=== PATIENT | male | born 1970 | race Caucasian/White ===

== ENCOUNTER 2020-02-09 08:06 | Day surgery (SDC) | payer OTHER ==
[~2020-02-09] VITALS: Ht 185.4 cm; Wt 98.0 kg
[~2020-02-09 08:06] MED LIST: D31000TA2 PO; FISH1000 PO; OSTE5TAB PO; SUMA100T2 PO; VITA500C24 PO
[2020-02-09] MEDS ORDERED: NS 1,000 ML IV ONE (09:15)
[2020-02-09] MEDS ORDERED: LIDOCAINE 2% 100MG/5ML SDV (FOR ANES.) As Ordered ONE (09:18)
[2020-02-09] MEDS ORDERED: propofoL 200 MG/20 ML VIAL As Ordered ONE (09:18)
--- NOTE | 2020-02-09 09:32 | ROOR ---
Patient Name: James Palmer Procedure Date: 02/09/2020 9:16 AM Date of : 1970 Age: 49 Room: [facility] Gender: Male Note Status: Finalized Procedure: Colonoscopy Indications: Screening for colorectal malignant neoplasm Providers: Azeem RUSH MD Referring MD: LILI SALEH MD Requesting Provider: Medicines: Monitored Anesthesia Care Complications: No immediate complications. Procedure: Pre-Anesthesia Assessment: - The heart rate, respiratory rate, oxygen saturations, blood pressure, adequacy of pulmonary ventilation, and response to care were monitored throughout the procedure. The Colonoscope was introduced through the anus and advanced to the terminal ileum, with identification of the appendiceal orifice and IC valve. The colonoscopy was performed without difficulty. Findings: The perianal and digital rectal examinations were normal. Mild sigmoid diverticulosis and small internal hemorrhoids. The exam was otherwise without abnormality on direct and retroflexion views. Impression: - Minimal sigmoid diverticulosis and small internal hemorrhoids. - The examination was otherwise normal on direct and retroflexion views. - No specimens collected. Recommendation: - Repeat colonoscopy in 10 years for screening purposes. Azeem Rush MD Azeem RUSH MD 02/09/2020 9:32:20 AM Electronically signed by Azeem RUSH MD Number of Addenda: 0 Note Initiated On: 02/09/2020 9:16 AM Estimated Blood Loss: Estimated blood loss: none.
[2020-02-09 09:55] VITALS: BP 130/81
== END 2020-02-09 10:20 | disposition home or self-care (01) ==
LOC: M OPP 08:06
PROVIDERS: ATTEND Internal Medicine Gastroenterology
DX: Z12.11 Encounter for screening for malignant neoplasm of colon (principal); K57.30 Diverticulosis of large intestine without perforation or abscess without bleeding

== ENCOUNTER → 2021-08-11 | Outpatient (REF) | payer OTHER | LOC: M LAB REF 17:22 | PROVIDERS: ATTEND Nurse Practitioner Family | DX: D23.61 Other benign neoplasm of skin of right upper limb, including shoulder (principal) ==

== ENCOUNTER → 2021-11-01 | Outpatient (REF) | payer OTHER ==
[~2021-11-01] MED LIST changes: -D31000TA2 PO; +VITA100093 PO
== END ==
LOC: M LAB REF 13:28
PROVIDERS: ATTEND Orthopaedic Surgery
DX: M72.0 Palmar fascial fibromatosis [Dupuytren] (principal)

== ENCOUNTER → 2023-06-27 | Outpatient (CLI) | payer OTHER | LOC: M WUC 15:47 | PROVIDERS: ATTEND Internal Medicine | DX: M54.9 Dorsalgia, unspecified (principal) ==

== ENCOUNTER → 2024-03-05 | Outpatient (REF) | payer OTHER | LOC: M SFHCDERM 17:22 | PROVIDERS: ATTEND Physician Assistant | DX: L57.0 Actinic keratosis (principal) ==